=== PATIENT | male | born 1950 | race Two or more races ===

== ENCOUNTER → 2021-08-03 | Outpatient (CLI) | payer OTHER ==
[~2021-08-03] MED LIST: KEPPRA500 MG PO; [UNRECOGNIZED DRUG - OTHER]; [UNRECOGNIZED DRUG - OTHER]
== END | disposition home or self-care (01) ==
LOC: NUCLEAR 12:21
PROVIDERS: ATTEND Psychiatry & Neurology Clinical Neurophysiology
DX: G31.84 Mild cognitive impairment of uncertain or unknown etiology (principal)
CPT/HCPCS: 78803; A9557; J1120

== ENCOUNTER 2022-09-11 07:41 | Outpatient (CLI) | payer OTHER | END 2022-09-11 07:44 | disposition home or self-care (01) | LOC: NUCLEAR 07:41 | PROVIDERS: ATTEND Psychiatry & Neurology Clinical Neurophysiology | DX: G30.1 Alzheimer's disease with late onset (principal); Z88.0 Allergy status to penicillin; Z88.6 Allergy status to analgesic agent; Z88.8 Allergy status to other drugs, medicaments and biological substances; Z88.1 Allergy status to other antibiotic agents | CPT/HCPCS: 78803; A9557 ==

== ENCOUNTER 2023-08-04 09:24 | Outpatient (CLI) | payer OTHER | END 2023-08-04 09:31 | disposition home or self-care (01) | LOC: TOM 09:24 | PROVIDERS: ATTEND Psychiatry & Neurology Clinical Neurophysiology | DX: R22.1 Localized swelling, mass and lump, neck (principal) | CPT/HCPCS: 70492; Q9965 ==

== ENCOUNTER 2023-10-10 10:40 | Outpatient (CLI) | payer OTHER | END 2023-10-10 10:46 | disposition home or self-care (01) | LOC: SONOGRAMA 10:40 | PROVIDERS: ATTEND Otolaryngology | DX: E04.1 Nontoxic single thyroid nodule (principal) ==

== ENCOUNTER 2023-12-22 08:43 | Outpatient (CLI) | payer OTHER | END 2023-12-22 08:45 | disposition home or self-care (01) | LOC: SONOGRAMA 08:43 | PROVIDERS: ATTEND Pathology Anatomic Pathology | DX: D34 Benign neoplasm of thyroid gland (principal); E07.89 Other specified disorders of thyroid; E04.1 Nontoxic single thyroid nodule ==